=== PATIENT | female | born 1960 | race Two or more races ===

== ENCOUNTER 2019-07-23 07:13 | Emergency (ER) | payer SELFPAY ==
[~2019-07-23] VITALS: Ht 152.4 cm; Wt 50.0 kg
--- NOTE | 2019-07-23 07:33 | PHYS DOC ---
General Adult EDM: Chief Complaint: FLANK PAIN HPI: HPI: Patient is a 58 year old female who presented to ER today with left flank pain for about 4 days. The pain wraps around her left abdominal area into her left back side. Patient also had fever and cough for few days.. Patient says she had not been exposed to anybody who tested positive for the COVID-19. Patient denies any chest pain, no history of coronary ARTERY disease. Review of Systems: Review of Systems: Constitutional: Positive for fever or chills. [] Eyes: Denies change in visual acuity. [] HENT: Denies nasal congestion or sore throat. [] Respiratory: positive for cough , no shortness of breath. [] Cardiovascular: Denies chest pain or edema. [] GI: positive for abdominal pain, , nausea, vomiting, bloody stools or diarrhea. [] : Denies dysuria. [] Musculoskeletal: Denies back pain or joint pain. [] Integument: Denies rash. [] Neurologic: Denies headache, focal weakness or sensory changes. [] Endocrine: Denies polyuria or polydipsia. [] Lymphatic: Denies swollen glands. [] Psychiatric: Denies depression or anxiety. [] Heart Score: Risk Factors: Risk Factors: DM, Current or recent (<one month) smoker, HTN, HLP, family history of CAD, obesity. Risk Scores: Score 0 - 3: 2.5% MACE over next 6 weeks - Discharge Home Score 4 - 6: 20.3% MACE over next 6 weeks - Admit for Clinical Observation Score 7 - 10: 72.7% MACE over next 6 weeks - Early Invasive Strategies Allergies: Allergies: Allergies Coded Allergies Type Severity Reaction Last Updated Verified No Known Drug Allergies 07/23/19 No Physical Exam: PE: Constitutional: Well developed, well nourished, no acute distress, non-toxic appearance. [] HENT: Normocephalic, atraumatic, bilateral external ears normal, oropharynx moist, no oral exudates, nose normal. [] Eyes: PERRLA, EOMI, conjunctiva normal, no discharge. [] Neck: Normal range of motion, no tenderness, supple, no stridor. [] Cardiovascular:Heart rate regular rhythm, no murmur [] Lungs & Thorax: Bilateral breath sounds clear to auscultation [] Abdomen: Bowel sounds normal, soft, no tenderness, no masses, no pulsatile masses. [] Skin: Warm, dry, no erythema, no rash. [] Back: No tenderness, no CVA tenderness. [] Extremities: No tenderness, no cyanosis, no clubbing, ROM intact, no edema. [] Neurologic: Alert and oriented X 3, normal motor function, normal sensory function, no focal deficits noted. [] Psychologic: Affect normal, judgement normal, mood normal. [] EKG: EKG: EKG was done at 806, heart rate of 80 bpm, normal sinus rhythm, no ST segment elevation Radiology/Procedures: Radiology/Procedures: [][facility] [address] [place] [address] IMAGING REPORT Signed PATIENT: RABIA DUNBAR EACCOUNT: [id number] : 1960 LOCATION: ER AGE: 58 SEX: F EXAM STATUS: REG ER ORD. PHYSICIAN: JENNIFER JARAMILLO DO REASON: abdominal pain, bilateral flank pain x 4 days PROCEDURE: CT ABD PELV W/ IV CONTRST ONLY PQRS Compliance Statement: One or more of the following individualized dose reduction techniques were utilized for this examination: 1. Automated exposure control 2. Adjustment of the mA and/or kV according to patient size 3. Use of iterative reconstruction technique CT abdomen/pelvis with contrast 07/23/2019 9:05 AM INDICATION: Abdominal pain, bilateral flank pain for 4 days. COMPARISON: None available TECHNIQUE: Multiple axial CT images of the abdomen and pelvis were obtained after the intravenous administration of 75 mL Omnipaque 300. Coronal and sagittal reformats are provided. FINDINGS: Patchy airspace consolidation is identified in the medial right lower lobe. Mixed solid and groundglass nodule is identified in the posterior right lower lobe with groundglass component measuring 10 x 10 mm and solid component measuring 5 x 5 mm (series 2, image 3). Additional groundglass nodule identified in the posterior left costophrenic angle measuring 6.5 mm. There is a solid noncalcified pulmonary nodule in the left lower lobe measuring 5 mm (series 2, image 5). Heart size is within normal limits. Small hiatal hernia. Liver, spleen, bilateral adrenal glands, pancreas and gallbladder are normal in appearance. Abdominal aorta is normal in caliber. No pathologically enlarged lymph nodes in abdomen and pelvis. No free fluid or free intraperitoneal air. Simple renal cortical cyst is identified in the medial interpolar left kidney measuring 8 mm. No suspicious renal mass. No hydronephrosis. Appendix is normal in caliber measuring 5 mm. No significant adjacent inflammatory changes are identified. No bowel obstruction or inflammation. There is a partly calcified uterine leiomyoma measuring 3.7 x 2.7 which appears predominantly intramural. Mild adnexal varices are present. Urinary bladder is within normal limits given degree of distention. No suspicious osseous abnormality is identified. Chronic appearing superior plate compression deformity is identified at T11 with 50 percent height loss. Chronic appearing superior endplate concavity is identified at L1 and L2 with less than 25 percent height loss. IMPRESSION: 1. No bowel obstruction or inflammation. Appendix is normal in appearance. 2. Patchy consolidative changes identified in the medial right lower lobe suspicious for pulmonary infiltrate in appropriate clinical setting. Mixed solid and groundglass nodule, groundglass nodule and solid nodules are identified at the lung bases as described in detail above. Findings most favor infectious/inflammatory etiology. 3 month follow-up chest CT is recommended to ensure resolution. 3. There is a partly calcified uterine leiomyoma measuring 2.7 x 2.7 cm. Mild adnexal varices. 4. Likely chronic pressure deformities involving T11, L1 and L2. Correlate with point tenderness. Electronically signed by: Deborah Gamble MD (07/23/2019 9:55 AM) [facility] DICTATED and SIGNED BY: DEBORAH GAMBLE MD DATE: 07/23/19 09 Course & Med Decision Making: Course & Med Decision Making Pertinent Labs and Imaging studies reviewed. (See chart for details) Patient is a 58-year-old female who was found to have pneumonia, she will be discharged home with prescription for Omnicef, she will need to follow-up with her family doctor in a couple days for reevaluation. [place] Disclaimer: [place] Disclaimer: This electronic medical record was generated, in whole or in part, using a voice recognition dictation system. Departure Departure Impression: Primary Impression: Pneumonia Disposition: 01 HOME, SELF-CARE Condition: STABLE Referrals: NO PCP (PCP) Patient Instructions: Flank Pain, Pneumonia, Adult Additional Instructions: Thank you for visiting our Emergency Department. We appreciate you trusting us with your care. If any additional problems come up don't hesitate to return to visit us. Please follow up with your primary care provider so they can plan additional care if needed and know about the problem that you had. If symptoms worsen come back to the Emergency Department. Any concerning symptoms that start such as chest pain, shortness of air, weakness or numbness on one side of the body, running high fevers or any other concerning symptoms return to the ER. Scripts Cefdinir (CEFDINIR) 300 Mg Capsule 1 CAP PO BID for 10 Days, #20 CAP Prov: JENNIFER JARAMILLO DO 07/23/19 Justicifation of Admission Dx: Justifications for Admission: Justification of Admission Dx: N/A JENNIFER JARAMILLO DO Jul 23, 2019 07:33
[2019-07-23 07:50] LABS: BILIRUBIN,URINE NEGATIVE (NEG); CLARITY,URINE CLEAR; COLOR,URINE YELLOW; NITRITE,URINE NEGATIVE (NEG); PROTEIN,URINE 30 mg/dL (NEG-TRACE)
[2019-07-23] MEDS ORDERED: MORPHINE SULFATE 4 MG/ML VIAL. IV ONE (08:00)
[2019-07-23] MEDS ORDERED: ONDANSETRON PF 4 MG/2 ML VIAL. IVP ONE (08:00)
[2019-07-23] MEDS ORDERED: IV NORMAL SALINE 1000ML BAG 1,000 ML IV ONE (08:00)
[2019-07-23 08:01] LABS: BACTERIA,URINE FEW /HPF (0-FEW); RBC,URINE 0 /HPF (0-2)
[2019-07-23 08:02] LABS: SQUAMOUS EPITHELIAL CELL,UR MOD /LPF
--- NOTE | 2019-07-23 08:07 | RAD ---
PORTABLE CHEST 1V 07/23/2019 7:30 AM INDICATION: Left-sided chest pain for 4 days COMPARISON: None available TECHNIQUE: Portable frontal view of the chest is provided. FINDINGS: The cardiomediastinal silhouette is within normal limits. Lungs are clear. There are no significant pleural effusions. There is no pulmonary vascular congestion. No pneumothorax. No suspicious osseous abnormality. IMPRESSION: There is no acute cardiopulmonary process. Electronically signed by: Echo Avila MD (07/23/2019 8:04 AM) [facility]
[2019-07-23 08:24] LABS: BASO % 1 % (0-3); EOS % 0 % (0-3); HEMATOCRIT 39.9 % (36.0-47.0); HEMOGLOBIN 13.8 g/dL (12.0-15.5); LYMPH # 0.9 x10^3/uL (1.0-4.8); LYMPH % 36 % (24-48); MEAN CORPUSCULAR HEMOGLOBIN 33 pg (25-35); MEAN CORPUSCULAR HGB CONC 35 g/dL (31-37); MEAN CORPUSCULAR VOLUME 97 fL (79-100); MONO # 0.3 x10^3/uL (0.0-1.1); MONO % 11 % (0-9); NEUT # 1.3 x10^3/uL (1.8-7.7); NEUT % 51 % (31-73); PLATELET COUNT 135 x10^3/uL (140-400); RED BLOOD COUNT 4.13 x10^6/uL (3.50-5.40); RED CELL DISTRIBUTION WIDTH 13.2 % (11.5-14.5); WHITE BLOOD COUNT 2.6 x10^3/uL (4.0-11.0)
[2019-07-23 08:32] LABS: CALCIUM 8.2 mg/dL (8.5-10.1); CREATININE 0.5 mg/dL (0.6-1.0); GFR 126.7; POTASSIUM 3.9 mmol/L (3.5-5.1)
[2019-07-23 08:36] LABS: ALBUMIN 3.4 g/dL (3.4-5.0); ALBUMIN/GLOBULIN RATIO 0.9 (1.0-1.7); TOTAL BILIRUBIN 0.4 mg/dL (0.2-1.0); TOTAL PROTEIN 7.3 g/dL (6.4-8.2)
[2019-07-23 08:45] LABS: PROTHROMBIN TIME PATIENT 13.1 SEC (11.7-14.0)
[2019-07-23] MEDS ORDERED: IOHEXOL 300 MG/ML 100ML VIAL. IV ONE (09:30)
--- NOTE | 2019-07-23 09:58 | RAD ---
PQRS Compliance Statement: One or more of the following individualized dose reduction techniques were utilized for this examination: 1. Automated exposure control 2. Adjustment of the mA and/or kV according to patient size 3. Use of iterative reconstruction technique CT abdomen/pelvis with contrast 07/23/2019 9:05 AM INDICATION: Abdominal pain, bilateral flank pain for 4 days. COMPARISON: None available TECHNIQUE: Multiple axial CT images of the abdomen and pelvis were obtained after the intravenous administration of 75 mL Omnipaque 300. Coronal and sagittal reformats are provided. FINDINGS: Patchy airspace consolidation is identified in the medial right lower lobe. Mixed solid and groundglass nodule is identified in the posterior right lower lobe with groundglass component measuring 10 x 10 mm and solid component measuring 5 x 5 mm (series 2, image 3). Additional groundglass nodule identified in the posterior left costophrenic angle measuring 6.5 mm. There is a solid noncalcified pulmonary nodule in the left lower lobe measuring 5 mm (series 2, image 5). Heart size is within normal limits. Small hiatal hernia. Liver, spleen, bilateral adrenal glands, pancreas and gallbladder are normal in appearance. Abdominal aorta is normal in caliber. No pathologically enlarged lymph nodes in abdomen and pelvis. No free fluid or free intraperitoneal air. Simple renal cortical cyst is identified in the medial interpolar left kidney measuring 8 mm. No suspicious renal mass. No hydronephrosis. Appendix is normal in caliber measuring 5 mm. No significant adjacent inflammatory changes are identified. No bowel obstruction or inflammation. There is a partly calcified uterine leiomyoma measuring 3.7 x 2.7 which appears predominantly intramural. Mild adnexal varices are present. Urinary bladder is within normal limits given degree of distention. No suspicious osseous abnormality is identified. Chronic appearing superior plate compression deformity is identified at T11 with 50 percent height loss. Chronic appearing superior endplate concavity is identified at L1 and L2 with less than 25 percent height loss. IMPRESSION: 1. No bowel obstruction or inflammation. Appendix is normal in appearance. 2. Patchy consolidative changes identified in the medial right lower lobe suspicious for pulmonary infiltrate in appropriate clinical setting. Mixed solid and groundglass nodule, groundglass nodule and solid nodules are identified at the lung bases as described in detail above. Findings most favor infectious/inflammatory etiology. 3 month follow-up chest CT is recommended to ensure resolution. 3. There is a partly calcified uterine leiomyoma measuring 2.7 x 2.7 cm. Mild adnexal varices. 4. Likely chronic pressure deformities involving T11, L1 and L2. Correlate with point tenderness. Electronically signed by: Echo Avila MD (07/23/2019 9:55 AM) [facility]
[2019-07-23] MEDS ORDERED: cefTRIAXone IV Push 1 GM VIAL. IVP ONE (10:15)
[2019-07-23] MEDS ORDERED: AZITHROMYCIN 250 MG TABLET. PO ONE (10:15)
[2019-07-23 12:55] VITALS: BP 114/68
[2019-07-23] MEDS ORDERED: CEFD300C PO (12:58)
== END 2019-07-23 13:11 | disposition home or self-care (01) ==
LOC: ER 07:13
DX: J18.9 Pneumonia, unspecified organism (principal); R10.9 Unspecified abdominal pain; R05 Cough
CPT/HCPCS: 36415; 71045; 74177; 80053; 81001; 83690; 84484; 85025; 85610; 85730; 87086; 96374; 96375; 99285; J0696; J2270; J2405; J7030; Q9967